=== PATIENT | male | born 1980 | race African-American/Black ===

== ENCOUNTER 2017-02-17 23:19 | Emergency (ER) | payer OTHER ==
[~2017-02-17] VITALS: Ht 167.6 cm; Wt 108.0 kg
[~2017-02-17 23:19] MED LIST: ALTOPREV20 MG PO; ANTIVERT25 MG PO; ASPIRIN81 M2 PO; AUGMENTIN875 MG PO; BYSTOLIC5 MG PO; NAPROSYN500 MG PO; NICOTINE PATCH1 EAC2 TD; TRAMADOL HCL50 MG PO; VALIUM5 MG PO
[2017-02-18 02:39] VITALS: BP 122/85
== END 2017-02-18 02:40 | disposition home or self-care (01) ==
LOC: EME 23:19
DX: G44.209 Tension-type headache, unspecified, not intractable (principal); R42 Dizziness and giddiness; I10 Essential (primary) hypertension; F17.200 Nicotine dependence, unspecified, uncomplicated
CPT/HCPCS: 70450; 99281; 99284; J1885

== ENCOUNTER 2017-05-20 23:04 | Day surgery (SDC) | payer OTHER ==
[~2017-05-20] VITALS: Ht 162.6 cm; Wt 80.0 kg
[2017-05-20 23:44] LABS: HEMATOCRIT 42.7 % (38.0-50.0); MCH 31.9 PG (29.0-34.0); MCV 93.8 FL (86-99); MEAN PLAT.VOLUME 9.2 uM^3 (9.0-12.4); PLATELET COUNT 261 K/uL (156-360); RBC DIS.WIDTH-CV 12.6 % (11.8-14.6); RBC DIS.WIDTH-SD 43.7 % (39-53); RED BLOOD COUNT 4.55 M/uL (4.00-5.50); WHITE BLOOD COUNT 9.1 K/uL (4.1-10.2)
[2017-05-21 00:16] LABS: TROP-I INTERPRETATION NEGATIVE; TROPONIN-I < 0.01 ng/mL (0.0-0.30)
[2017-05-21 00:19] LABS: CHLORIDE 104 mEq/L (99-109); POTASSIUM 3.4 mEq/L (3.7-5.4); SODIUM 137 mEq/L (136-147)
[2017-05-21 00:21] LABS: GLUCOSE 207 mg/dL (70-99)
[2017-05-21 00:22] LABS: ANION GAP 11 MEQ/L (2-14)
[2017-05-21 00:25] LABS: GFR ESTIMATE (CALCULATED) > 59 mL/min/
[2017-05-21 00:26] LABS: UREA NITROGEN (BUN) 11 mg/dL (9-23)
[2017-05-21 01:19] VITALS: BP 156/90
[2017-05-21] MEDS ORDERED: LIBRAX, CLI1 CAPSULE PO (17:50)
[2017-05-21] MEDS ORDERED: CARDIZEM30 MG PO (17:50)
[2017-05-21] MEDS ORDERED: OMEPRAZOLE40 M1 PO (17:51)
== END 2017-05-21 02:58 | disposition home or self-care (01) ==
LOC: EME → EDBD 23:04 → EME 23:04 → SDC 05-21 01:21 → EME 05-21 01:21 → SDC 05-21 02:58
PROVIDERS: Emergency Medicine
PROC: 0DB58ZX Excision of Esophagus, Via Natural or Artificial Opening Endoscopic, Diagnostic (ICD-10-PCS; principal; 2017-05-21)
DX: T18.128A Food in esophagus causing other injury, initial encounter (principal); K21.9 Gastro-esophageal reflux disease without esophagitis; I10 Essential (primary) hypertension; Z90.49 Acquired absence of other specified parts of digestive tract; F17.210 Nicotine dependence, cigarettes, uncomplicated
CPT/HCPCS: 70360; 71010; 80048; 84484; 85027; 88305; 93005; 99281; 99285; J0330; J1100; J2060; J2405; J7030

== ENCOUNTER 2017-05-21 14:42 | Emergency (ER) | payer OTHER ==
[~2017-05-21] VITALS: Ht 167.6 cm; Wt 106.3 kg
[2017-05-21] MEDS ORDERED: LIBRAX, CLI1 CAPSULE PO (17:50)
[2017-05-21] MEDS ORDERED: CARDIZEM30 MG PO (17:50)
[2017-05-21] MEDS ORDERED: OMEPRAZOLE40 M1 PO (17:51)
[2017-05-21 19:14] VITALS: BP 140/86
== END 2017-05-21 19:16 | disposition home or self-care (01) ==
LOC: EME 14:42
DX: K22.4 Dyskinesia of esophagus (principal); I10 Essential (primary) hypertension; F17.200 Nicotine dependence, unspecified, uncomplicated; Z98.890 Other specified postprocedural states
CPT/HCPCS: 70360; 70490; 99281; 99284

== ENCOUNTER 2017-05-23 17:46 | Emergency (ER) | payer OTHER ==
[~2017-05-23] VITALS: Ht 167.6 cm; Wt 104.1 kg
[~2017-05-23 17:46] MED LIST changes: +CARDIZEM30 MG PO; +LIBRAX, CLI1 CAPSULE PO; +OMEPRAZOLE40 M1 PO
[2017-05-23 20:41] VITALS: BP 135/85
== END 2017-05-23 20:41 | disposition home or self-care (01) ==
LOC: EME 17:46
DX: R13.10 Dysphagia, unspecified (principal); F41.9 Anxiety disorder, unspecified; Z90.49 Acquired absence of other specified parts of digestive tract; F17.200 Nicotine dependence, unspecified, uncomplicated
CPT/HCPCS: 99281; 99283

== ENCOUNTER 2017-06-07 12:39 | Emergency (ER) | payer OTHER ==
[~2017-06-07] VITALS: Ht 167.6 cm; Wt 96.7 kg
[2017-06-07 13:27] LABS: MCH 30.8 PG (29.0-34.0); MCHC 33.4 G/DL (30.0-36.0); MCV 92.3 FL (86-99); MEAN PLAT.VOLUME 9.6 uM^3 (9.0-12.4); PLATELET COUNT 290 K/uL (156-360); RBC DIS.WIDTH-CV 12.4 % (11.8-14.6); RBC DIS.WIDTH-SD 42.3 % (39-53); RED BLOOD COUNT 5.09 M/uL (4.00-5.50); WHITE BLOOD COUNT 7.5 K/uL (4.1-10.2)
[2017-06-07 13:35] LABS: CHLORIDE 105 mEq/L (99-109); SODIUM 141 mEq/L (136-147)
[2017-06-07 13:37] LABS: GLUCOSE 90 mg/dL (70-99)
[2017-06-07 13:38] LABS: ANION GAP 10 MEQ/L (2-14)
[2017-06-07 13:41] LABS: GFR ESTIMATE (CALCULATED) > 59 mL/min/; UREA NITROGEN (BUN) 12 mg/dL (9-23)
[2017-06-07 14:08] LABS: BILIRUBIN NEGATIVE; BLOOD NEGATIVE; COLOR YELLOW ((YELLOW)); GLUCOSE (STRIP) NEGATIVE; KETONES 20; LEUKOCYTES NEGATIVE; NITRITE NEGATIVE; PROTEIN (STRIP) 30; SPECIFIC GRAVITY 1.029 (1.000-1.030); UROBILINOGEN 0.2 MG/DL (0.2-1.0)
[2017-06-07 14:09] LABS: ADD MIUA? NO
[2017-06-07 14:38] LABS: AMYLASE 32 IU/L (1-118)
[2017-06-07 14:41] LABS: TOTAL BILIRUBIN 0.6 mg/dL (0.0-1.0)
[2017-06-07 14:42] LABS: ALKALINE PHOSPHATASE 119 IU/L (3-129)
[2017-06-07 14:45] LABS: DIRECT BILIRUBIN 0.2 mg/dL (0.0-0.3)
[2017-06-07 14:46] LABS: LIPASE 23 U/L (1.0-51.0)
[2017-06-07] MEDS ORDERED: PERCOCET 5/31 TABLET PO (15:24)
[2017-06-07] MEDS ORDERED: ZOFRAN ODT4 MG PO (15:24)
[2017-06-07 16:25] VITALS: BP 103/66
== END 2017-06-07 16:26 | disposition home or self-care (01) ==
LOC: EME 12:39
PROVIDERS: Physician Assistant
DX: K85.90 Acute pancreatitis without necrosis or infection, unspecified (principal); Z90.49 Acquired absence of other specified parts of digestive tract; F17.200 Nicotine dependence, unspecified, uncomplicated
CPT/HCPCS: 74176; 80048; 80076; 81003; 82150; 83690; 85027; 99281; 99285; J1885; J7030

== ENCOUNTER 2017-07-05 04:55 | Emergency (ER) | payer OTHER ==
[~2017-07-05] VITALS: Ht 167.6 cm; Wt 95.8 kg
[~2017-07-05 04:55] MED LIST changes: +PERCOCET 5/31 TABLET PO; +ZOFRAN ODT4 MG PO
[2017-07-05 04:57] VITALS: BP 135/75
[2017-07-05] MEDS ORDERED: SILVADENE20 GM TP (05:23)
[2017-07-05] MEDS ORDERED: ULTRAM50 MG PO (05:23)
== END 2017-07-05 05:44 | disposition home or self-care (01) ==
LOC: EME 04:55
DX: T22.211A Burn of second degree of right forearm, initial encounter (principal); T22.212A Burn of second degree of left forearm, initial encounter; T31.0 Burns involving less than 10% of body surface; X12.XXXA Contact with other hot fluids, initial encounter; Y99.0 Civilian activity done for income or pay; F17.200 Nicotine dependence, unspecified, uncomplicated
CPT/HCPCS: 99281; 99283

== ENCOUNTER 2017-10-30 02:37 | Emergency (ER) | payer OTHER ==
[~2017-10-30] VITALS: Ht 167.6 cm; Wt 89.4 kg
[~2017-10-30 02:37] MED LIST changes: +SILVADENE20 GM TP; +ULTRAM50 MG PO
[2017-10-30 03:27] LABS: HEMATOCRIT 43.2 % (38.0-50.0); HEMOGLOBIN 14.8 G/DL (12.5-16.6); MCH 32.2 PG (29.0-34.0); MCHC 34.3 G/DL (30.0-36.0); MCV 93.9 FL (86-99); PLATELET COUNT 297 K/uL (156-360); RBC DIS.WIDTH-CV 13.5 % (11.8-14.6); RBC DIS.WIDTH-SD 46.5 % (39-53); WHITE BLOOD COUNT 7.3 K/uL (4.1-10.2)
[2017-10-30 03:42] LABS: ALBUMIN 4.5 g/dL (3.2-4.8); CHLORIDE 107 mEq/L (99-109); POTASSIUM 4.3 mEq/L (3.7-5.4); SODIUM 140 mEq/L (136-147)
[2017-10-30 03:44] LABS: GLUCOSE 79 mg/dL (70-99); TOTAL PROTEIN 6.7 g/dL (6.4-8.3)
[2017-10-30 03:46] LABS: TOTAL BILIRUBIN 0.4 mg/dL (0.0-1.0)
[2017-10-30 03:48] LABS: ALKALINE PHOSPHATASE 118 IU/L (3-129); CREATININE 0.8 mg/dL (0.6-1.3); GFR ESTIMATE (CALCULATED) > 59 mL/min/ (58.99-99999)
[2017-10-30 03:49] LABS: UREA NITROGEN (BUN) 9 mg/dL (9-23)
[2017-10-30 03:50] LABS: AST (GOT) 15 IU/L (2-34)
[2017-10-30 03:51] LABS: ALT (GPT) 17 IU/L (3-49)
[2017-10-30 06:22] VITALS: BP 109/66
== END 2017-10-30 06:29 | disposition home or self-care (01) ==
LOC: EME 02:37
PROVIDERS: Emergency Medicine
DX: E86.0 Dehydration (principal); F17.200 Nicotine dependence, unspecified, uncomplicated; Z90.49 Acquired absence of other specified parts of digestive tract
CPT/HCPCS: 80053; 85027; 93005; 99281; 99284; J7030

== ENCOUNTER 2017-12-30 17:11 | Emergency (ER) | payer OTHER ==
[~2017-12-30] VITALS: Ht 167.6 cm; Wt 91.9 kg
[2017-12-30 18:41] VITALS: BP 165/97
== END 2017-12-30 18:42 | disposition home or self-care (01) ==
LOC: EME 17:11
DX: M54.5 Low back pain (principal); F41.9 Anxiety disorder, unspecified; F17.200 Nicotine dependence, unspecified, uncomplicated
CPT/HCPCS: 72100; 99281; 99283; J1885

== ENCOUNTER 2018-03-05 02:27 | Emergency (ER) | payer OTHER ==
[~2018-03-05] VITALS: Ht 167.6 cm; Wt 98.7 kg
[2018-03-05 02:58] LABS: HEMATOCRIT 37.8 % (38.0-50.0); HEMOGLOBIN 13.3 G/DL (12.5-16.6); MCH 32.6 PG (29.0-34.0); MCHC 35.2 G/DL (30.0-36.0); MCV 92.6 FL (86-99); PLATELET COUNT 245 K/uL (156-360); RBC DIS.WIDTH-CV 12.4 % (11.8-14.6); RED BLOOD COUNT 4.08 M/uL (4.00-5.50); WHITE BLOOD COUNT 7.9 K/uL (4.1-10.2)
[2018-03-05 03:25] LABS: CHLORIDE 106 mEq/L (99-109); POTASSIUM 3.9 mEq/L (3.7-5.4); SODIUM 139 mEq/L (136-147)
[2018-03-05 03:27] LABS: GLUCOSE 124 mg/dL (70-99)
[2018-03-05 03:31] LABS: CREATININE 0.8 mg/dL (0.6-1.3); GFR ESTIMATE (CALCULATED) > 59 mL/min/ (58.99-99999)
[2018-03-05 03:32] LABS: UREA NITROGEN (BUN) 8 mg/dL (9-23)
[2018-03-05 03:39] LABS: TROP-I INTERPRETATION NEGATIVE; TROPONIN-I < 0.01 ng/mL (0.0-0.30)
[2018-03-05] MEDS ORDERED: ZANTAC300 MG PO (04:00)
[2018-03-05 04:22] VITALS: BP 101/66
== END 2018-03-05 04:24 | disposition home or self-care (01) ==
LOC: EME → EDBD 02:27 → EME 02:27
PROVIDERS: Physician Assistant
DX: R07.89 Other chest pain (principal); K21.9 Gastro-esophageal reflux disease without esophagitis; F32.9 Major depressive disorder, single episode, unspecified; F17.200 Nicotine dependence, unspecified, uncomplicated; Z90.49 Acquired absence of other specified parts of digestive tract
CPT/HCPCS: 71045; 80048; 83735; 84484; 85027; 93005; 99281; 99285